=== PATIENT | female | born 1990 | race Caucasian/White ===

== ENCOUNTER 2016-12-24 00:31 | Emergency (ER) | payer OTHER ==
[~2016-12-24] VITALS: Ht 167.6 cm; Wt 67.1 kg
[2016-12-24 00:47] VITALS: BP 135/78
--- NOTE | 2016-12-24 08:39 | REP ---
Pain after trauma. COMPARISON: None. There is a comminuted fracture of the middle phalanx of the second digit. There is also a fracture involving the base of the distal phalanx of the first digit medial corner and having an intra-articular component. IMPRESSION: First and second digit fractures as described above. Signed by Nestor Coppola DO 12/24/2016 10:05 A
--- NOTE | 2016-12-25 19:25 | ED PDOC ---
Provider Note ft [facility] fp faxed formal report of left toe films for fu Prabhakar Khalil MD Dec 25, 2016 19:25
== END 2016-12-24 02:44 | disposition home or self-care (01) ==
LOC: M ED 01:54
DX: S92.502A Displaced unspecified fracture of left lesser toe(s), initial encounter for closed fracture (principal); W22.8XXA Striking against or struck by other objects, initial encounter; Y92.018 Other place in single-family (private) house as the place of occurrence of the external cause; Y93.89 Activity, other specified; Y99.8 Other external cause status

== ENCOUNTER → 2017-10-03 | Outpatient (REF) | payer OTHER | LOC: M LAB REF 12:52 | PROVIDERS: ATTEND Physician Assistant Medical | DX: J02.9 Acute pharyngitis, unspecified (principal) ==

== ENCOUNTER → 2018-06-11 | Outpatient (REF) | payer OTHER | LOC: M SFHCLERA 11:22 | DX: J02.9 Acute pharyngitis, unspecified (principal) ==

== ENCOUNTER → 2018-07-01 | Outpatient (REF) | payer OTHER | LOC: M SFHCLERA 09:49 | DX: J02.9 Acute pharyngitis, unspecified (principal) ==

== ENCOUNTER → 2019-06-11 | Outpatient (REF) | payer OTHER ==
[2019-06-11 22:02] LABS: APPEARANCE, URINE MANUAL TURBID (CLEAR); COLOR, URINE MANUAL RED (YELLOW)
[2019-06-11 22:03] LABS: BILIRUBIN, URINE MANUAL NEGATIVE (NEGATIVE); GLUCOSE, URINE (UA) MANUAL NEGATIVE (NEGATIVE); KETONE, URINE MANUAL NEGATIVE (NEGATIVE); LEUKOCYTE ESTERASE, URINE MAN TRACE (NEGATIVE); NITRITE, URINE MANUAL NEGATIVE (NEGATIVE); PH,URINE MAN 5.5 UNITS (5.0 - 7.0); PROTEIN, URINE MANUAL 3+ mg/dL (NEGATIVE); UROBILINOGEN, URINE MANUAL NORMAL (NORMAL)
[2019-06-11 22:04] LABS: BLOOD URINE MANUAL POSITIVE (NEGATIVE)
[2019-06-11 22:05] LABS: RBC, URINE TNTC /hpf (0-3)
[2019-06-11 22:06] LABS: BACTERIA, URINE MOD AMOUNT; HYALINE CAST, URINE NONE SEEN /lpf (0-1); SQUAMOUS EPITHELIAL CELL URINE SMALL AMOUNT /hpf (SMALL AMT)
== END ==
LOC: M LAB REF 09:23
PROVIDERS: ATTEND Physician Assistant
DX: N39.0 Urinary tract infection, site not specified (principal)

== ENCOUNTER 2019-12-31 19:52 | Emergency (ER) | payer OTHER ==
[~2019-12-31] VITALS: Ht 165.1 cm; Wt 79.3 kg
[2019-12-31] MEDS ORDERED: SERT-138 (20:02)
[2019-12-31] MEDS ORDERED: NS 1,000 ML IV ONE (20:45)
[2019-12-31] MEDS ORDERED: ASPIRIN 81 MG CHEW TABLET PO ONE (20:45)
[2019-12-31 21:17] LABS: BASO # 0.1 10^3/uL (0.0-0.2); BASO % 0.7 % (0.0-1.0); EOS # 0.1 10^3/uL (0.0-0.5); EOS % 1.7 % (0.0-3.0); HEMATOCRIT 39.8 % (36.0-47.0); LYMPH # 1.7 10^3/uL (1.5-5.0); LYMPH % 24.1 % (24.0-44.0); MEAN CORPUSCULAR HGB CONC 32.7 g/dl (32.0-36.5); MEAN CORPUSCULAR VOLUME 88.8 fl (80.0-96.0); MONO # 0.5 10^3/uL (0.0-0.8); MONO % 7.7 % (0.0-5.0); NEUTROPHILS # 4.5 10^3/uL (1.5-8.5); NEUTROPHILS % 65.4 % (36.0-66.0); PLATELET COUNT, AUTOMATED 255 10^3/uL (150-450); RED BLOOD COUNT 4.48 10^6/uL (4.00-5.40); WHITE BLOOD COUNT 6.9 10^3/uL (4.0-10.0)
[2019-12-31 21:33] LABS: INR 1.05; PROTHROMBIN TIME 13.4 SECONDS (11.8-14.0)
[2019-12-31 21:49] LABS: BLOOD UREA NITROGEN 19 MG/DL (7-18); CALCIUM LEVEL 9.3 MG/DL (8.5-10.1); CARBON DIOXIDE LEVEL 30 MEQ/L (21-32); CHLORIDE LEVEL 103 MEQ/L (98-107); CK-MB VALUE MASS 2.2 NG/ML (<3.6); CPK CREATINE PHOSPHOKINASE 296 U/L (26-192); CREATININE FOR GFR 0.75 MG/DL (0.55-1.30); FREE T4 1.11 NG/DL (0.76-1.46); GLOMERULAR FILTRATION RATE > 60.0 (>60); GLUCOSE, FASTING 70 MG/DL (70-100); MAGNESIUM LEVEL 2.1 MG/DL (1.8-2.4); MB/CK RELATIVE INDEX 0.74 (< OR =4); SODIUM LEVEL 136 MEQ/L (136-145); TROPONIN I < 0.02 NG/ML (< 0.10)
[2019-12-31 22:14] VITALS: BP 136/82
--- NOTE | 2020-01-01 07:20 | REP ---
Clinical: Chest pain . Comparison: None . Technique: PA and lateral. Findings: The mediastinum and cardiac silhouette are normal. The lung rodriguez are clear and without acute consolidation, effusion, or pneumothorax. The skeletal structures are intact and normal. Impression: 1. No acute cardiopulmonary process. Electronically Signed by Harry Mccoy MD 01/01/2020 07:12 A
--- NOTE | 2020-01-01 12:10 | ECGEPIP ---
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
== END 2019-12-31 22:40 | disposition home or self-care (01) ==
LOC: M ED 19:52
DX: R00.2 Palpitations (principal); R42 Dizziness and giddiness; R06.02 Shortness of breath; R45.89 Other symptoms and signs involving emotional state; Z82.49 Family history of ischemic heart disease and other diseases of the circulatory system

== ENCOUNTER → 2020-02-06 | Outpatient (CLI) | payer OTHER ==
[~2020-02-06] MED LIST: ALBU83IN INH; LOES1TAB7 PO; MONT10TA4 PO; PRED20TA PO; PROAAER10 INH; SERT-138; SERT-141 PO
--- NOTE | 2020-02-06 12:18 | REP ---
REASON FOR EXAM: Chest pain. COMPARISON: 12/31/2019 FINDINGS: The superior mediastinal structures are midline. The cardiac silhouette is unremarkable in size, shape, and position. The diaphragmatic surfaces of the lungs are regular, and the costophrenic angles are clear. The pulmonary rodriguez are clear. The imaged osseous structures are intact. IMPRESSION: There is no acute cardiopulmonary disease. Electronically Signed by Nestor Coppola DO 02/06/2020 12:21 P
== END ==
LOC: M LRY 11:30
PROVIDERS: ATTEND Physician Assistant
DX: R05 Cough (principal); R06.02 Shortness of breath
CPT/HCPCS: 71046; G0463

== ENCOUNTER 2020-02-07 15:05 | Emergency (ER) | payer OTHER ==
[~2020-02-07] VITALS: Ht 165.1 cm; Wt 82.5 kg
[~2020-02-07 15:05] MED LIST changes: -ALBU83IN INH; -LOES1TAB7 PO; -MONT10TA4 PO; -PRED20TA PO; -PROAAER10 INH; -SERT-141 PO
[2020-02-07] MEDS ORDERED: LOES1TAB7 PO (15:17)
[2020-02-07] MEDS ORDERED: PRED20TA PO (15:17)
[2020-02-07] MEDS ORDERED: ALBU83IN INH (15:17)
[2020-02-07] MEDS ORDERED: MONT10TA4 PO (15:17)
[2020-02-07] MEDS ORDERED: PROAAER10 INH (15:17)
[2020-02-07] MEDS ORDERED: SERT-141 PO (15:18)
[2020-02-07] MEDS ORDERED: NS 500 ML IV ONE (16:00)
--- NOTE | 2020-02-07 16:06 | ECGEPIP ---
[facility] - ED Test Date: 2020-02-07 Pat Name: SHARIF HARTMAN Department: Room: - Gender: Female [employer]: : 1990 Requested By: OMID Coy PA-C Order Number: [id number] Reading MD: Nai Urbina Measurements Intervals [place] Rate: 62 P: 37 CT: 160 QRS: 73 QRSD: 99 T: 60 QT: 431 QTc: 441 Interpretive Statements SINUS RHYTHM EARLY REPOLARIZATION SIMILAR 12/31/19 Electronically Signed on 02-07-2020 16:06:03 EDT by Nai Urbina
[2020-02-07] MEDS: MAG SULF 1GM/100ML (MAG RUN) 1 GM in IV 1 EA IV SCH ×2 (16:21→16:45)
[2020-02-07 16:29] LABS: BASO # 0.1 10^3/uL (0.0-0.2); BASO % 0.6 % (0.0-1.0); EOS % 0.5 % (0.0-3.0); HEMATOCRIT 38.7 % (36.0-47.0); HEMOGLOBIN 12.7 g/dl (12.0-15.5); LYMPH # 1.8 10^3/uL (1.5-5.0); LYMPH % 22.3 % (24.0-44.0); MEAN CORPUSCULAR HEMOGLOBIN 29.6 pg (27.0-33.0); MEAN CORPUSCULAR HGB CONC 32.8 g/dl (32.0-36.5); MEAN CORPUSCULAR VOLUME 90.2 fl (80.0-96.0); MONO # 0.6 10^3/uL (0.0-0.8); MONO % 7.2 % (0.0-5.0); NEUTROPHILS # 5.6 10^3/uL (1.5-8.5); NEUTROPHILS % 68.9 % (36.0-66.0); PLATELET COUNT, AUTOMATED 226 10^3/uL (150-450); RED BLOOD COUNT 4.29 10^6/uL (4.00-5.40); WHITE BLOOD COUNT 8.2 10^3/uL (4.0-10.0)
[2020-02-07 16:43] LABS: HCG, SERUM QUALITATIVE NEGATIVE (NEGATIVE)
[2020-02-07 16:50] LABS: CK-MB VALUE MASS 1.2 NG/ML (<3.6); CPK CREATINE PHOSPHOKINASE 53 U/L (26-192); MB/CK RELATIVE INDEX 2.26 (< OR =4); TROPONIN I < 0.02 NG/ML (< 0.10)
[2020-02-07 16:52] LABS: BLOOD UREA NITROGEN 18 MG/DL (7-18); CALCIUM LEVEL 8.8 MG/DL (8.5-10.1); CARBON DIOXIDE LEVEL 29 MEQ/L (21-32); CHLORIDE LEVEL 104 MEQ/L (98-107); CREATININE FOR GFR 0.85 MG/DL (0.55-1.30); GLOMERULAR FILTRATION RATE > 60.0 (>60); GLUCOSE, FASTING 74 MG/DL (70-100); POTASSIUM SERUM 4.1 MEQ/L (3.5-5.1); SODIUM LEVEL 138 MEQ/L (136-145); THYROXINE (T4) 9.4 UG/DL (4.5-12.0)
[2020-02-07 17:26] VITALS: BP 138/79
== END 2020-02-07 17:30 | disposition home or self-care (01) ==
LOC: M ED 15:05
DX: J45.901 Unspecified asthma with (acute) exacerbation (principal); R06.02 Shortness of breath; R05 Cough; F41.9 Anxiety disorder, unspecified; Z87.09 Personal history of other diseases of the respiratory system; Z79.899 Other long term (current) drug therapy; Z79.52 Long term (current) use of systemic steroids
CPT/HCPCS: 80048; 82550; 82553; 84436; 84443; 84484; 84703; 85025; 93005; 96365; 99284; J3475

== ENCOUNTER → 2020-10-28 | Outpatient (REF) | payer OTHER ==
[~2020-10-28] MED LIST changes: +ALBU83IN INH; +LOES1TAB7 PO; +MONT5TAB2 PO; +PRED20TA PO; +PROAAER10 INH; +SERT-141 PO
[2020-10-28 14:59] LABS: APPEARANCE, URINE CLOUDY (CLEAR); BACTERIA, URINE AUTO NEGATIVE (NEGATIVE); BILIRUBIN, URINE AUTO NEGATIVE (NEGATIVE); BLOOD, URINE BLOOD 1+ (NEGATIVE); COLOR, URINE YELLOW (YELLOW); GLUCOSE, URINE (UA) AUTO NEGATIVE (NEGATIVE); KETONE, URINE AUTO NEGATIVE (NEGATIVE); LEUKOCYTE ESTERASE, URINE AUTO 3+ (NEGATIVE); MUCUS, URINE SMALL (NEGATIVE); NITRITE, URINE AUTO NEGATIVE (NEGATIVE); PROTEIN, URINE AUTO 2+ mg/dL (NEGATIVE); RBC, URINE AUTO 50 /HPF (0-3); SPECIFIC GRAVITY URINE AUTO 1.023 (1.002-1.035); SQUAMOUS EPITHELIAL CELL UR AU 4 /HPF (0-6); TRANSITIONAL EPITHELIAL AUTO 2 /HPF; UROBILINOGEN, URINE AUTO 0.2 mg/dL (0.0-2.0); WBC, URINE AUTO TNTC /HPF (0-3)
== END ==
LOC: M LAB REF 12:38
PROVIDERS: ATTEND Physician Assistant
DX: N39.0 Urinary tract infection, site not specified (principal)